=== PATIENT | male | born 1950 | race Caucasian/White ===

== ENCOUNTER 2017-01-10 10:01 | Emergency (ER) | payer MEDICARE, BC ==
[2017-01-10 10:11] VITALS: BP 159/96
--- NOTE | 2017-01-10 10:54 | ED Physician Documentation ---
PD HPI OPHTHO - Stated complaint Stated Complaint: L EYE VISION FLASH - Chief complaint Chief Complaint: Heent - History obtained from History obtained from: Patient - History of Present Illness Timing - onset: Enter time (1700), Yesterday Timing - duration: Days (1) Timing - details: Abrupt onset, Still present Location: Left Quality / character: No: Itching, Burning, Aching, Throbbing Associated symptoms: Other (subtle flash/blurr to lateral vision). No: Redness , Swelling, Tearing, Discharge, Matting, FB sensation, Photophobia, Double vision, Decreased vision, Loss of vision, Headache Contributing factors: Other (has had a prior retinal "aneurysm" that was injected last year). 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 He does not have foreign body sensation or significant pain. Review of Systems Constitutional: denies: Fever Eyes: denies: Loss of vision, Decreased vision, Photophobia, Discharge, Irritation Ears: denies: Ear pain Nose: denies: Congestion Respiratory: denies: Cough GI: denies: Vomiting PD PAST MEDICAL HISTORY - Past Medical History Past Medical History: Yes Other Past Medical History: 'fast HR at times'. 'anuerysm in left eye' - Past Surgical History Past Surgical History: No - Present Medications Home Medications: Ambulatory Orders Medication Instructions Recorded Confirmed Metoprolol Tartrate 12.5 mg PO DAILY 01/10/17 01/10/17 - Allergies Allergies/Adverse Reactions: Allergies Allergy/AdvReac Type Severity Reaction Status Date / Time No Known Drug Allergies Allergy Verified 01/10/17 10:11 - Social History Does the pt smoke?: No Smoking Status: Never smoker Does the pt drink ETOH?: No Does the pt have substance abuse?: No - Immunizations Immunizations are current?: Yes PD ED PE NORMAL - Vitals Vital signs reviewed: Yes (Hypertensive) - General General: Alert and oriented X 3, No acute distress, Well developed/nourished - HEENT HEENT: Atraumatic, PERRL, EOMI, Other (There is a cataract in the left eye and I am unable to adequately visualize the retina) - Neck Neck: Supple, no meningeal sign, No bony TTP - Respiratory Respiratory: No respiratory distress - Derm Derm: Normal color, No rash - Extremities Extremities: No deformity, No edema - Neuro Neuro: Alert and oriented X 3, No motor deficit, No sensory deficit, Normal speech - Psych Psych: Normal mood, Normal affect Results - Vitals Vitals: Vital Signs - 24 hr 01/10/17 10:07 Temperature 36.3 C L Heart Rate 73 Respiratory 16 Rate Blood Pressure 159/96 H O2 Saturation 99 Oxygen O2 Source Room air Procedures - Bedside sono Bedside sono by EMP: With the use of bedside ultrasound the retina on the left is examined and there is no obvious evidence of detachment. PD MEDICAL DECISION MAKING - ED course Complexity details: considered differential, d/w patient ED course: 66-year-old male with prior history of retinal aneurysm has symptoms today that are persisted and are vague and I am unable to visualize directly the retina. I am able to use bedside ultrasound and do not see obvious retinal detachment. I feel that the eye has been inadequately examined here and I have consulted Dr. Galaviz opthamology from here in [place] and he is in [place] today and he will see the patient for exam today. Departure - Departure Disposition: 01 Home, Self Care Clinical Impression: Vision disturbance Condition: Stable Instructions: ED Blurred Vision Follow-Up: MD Anastacia [Other] Comments: Follow up with Dr. Galaviz in [place] as planned today. Discharge Date/Time: 01/10/17 11:31
== END 2017-01-10 11:31 | disposition home or self-care (01) ==
LOC: ED 10:01
DX: H53.8 Other visual disturbances (principal); Z86.69 Personal history of other diseases of the nervous system and sense organs
CPT/HCPCS: 99283

== ENCOUNTER 2022-02-21 05:44 | Emergency (ER) | payer MEDICARE, BC ==
--- NOTE | 2022-02-21 06:09 | ED Physician Documentation ---
PD HPI MALE - Stated complaint Stated Complaint: MALE - Chief complaint Chief Complaint: General - History obtained from History obtained from: Patient - History of Present Illness Timing - onset: How many hours ago (2) Timing - duration: Hours (2) Timing - details: Gradual onset, Still present (he had placed a stainless steel 1/2 inch wide, 1/4 inch thick ring over glans and then shaft of his penis (intentional sex aid), which then got stuck when penis engorged and caused inability to urinate and discomfort in engorged penis.) Associated symptoms: Unable to urinate, Other (engorged penis) PD HPI MALE CONTRIB FACTORS: Sexually active. No: Exposed to STD Similar symptoms before: Has not had sx before Recently seen: Not recently seen Review of Systems Skin: denies: Rash, Abrasion (s), Laceration (s) Neurologic: denies: Focal weakness, Numbness PD PAST MEDICAL HISTORY - Past Medical History Past Medical History: Yes Cardiovascular: None Respiratory: None Neuro: None Endocrine/Autoimmune: None - Past Surgical History Past Surgical History: No - Present Medications Home Medications: Ambulatory Orders Medication Instructions Recorded Confirmed Metoprolol Succinate [Toprol Xl] 25 mg PO DAILY 02/21/22 02/21/22 - Allergies Allergies/Adverse Reactions: Allergies Allergy/AdvReac Type Severity Reaction Status Date / Time No Known Drug Allergies Allergy Verified 02/21/22 05:53 - Social History Does the pt smoke?: No Smoking Status: Never smoker Does the pt drink ETOH?: No Does the pt have substance abuse?: No - Immunizations Immunizations are current?: Yes PD ED PE NORMAL - Vitals Vital signs reviewed: Yes - General General: Alert and oriented X 3, No acute distress, Well developed/nourished - Abdomen Abdomen: Soft, Non tender - Rectal Rectal: Other (engorged penis with some purplish color. Stainless steel ring at base of shaft, with the metal thick about 1/4 inch and 1/2 inch wide. ) - Derm Derm: Warm and dry. No: Normal color (blaise color in penis distal to the ring, with engorged tissue.) - Extremities Extremities: No tenderness to palpate Results - Vitals Vitals: Vital Signs - 24 hr 02/21/22 02/21/22 02/21/22 05:51 10:35 13:42 Temperature 36.3 C L 35.7 C L Heart Rate 73 68 66 Respiratory 18 20 16 Rate Blood Pressure 149/84 H 143/91 H 130/83 H O2 Saturation 97 97 96 Oxygen O2 Source Room air - Labs Labs: Laboratory Tests 02/21/22 08:40 SARS-CoV-2 (PCR) NOT DETECTED PD MEDICAL DECISION MAKING - ED course Complexity details: considered differential (local anesth in dorsal shaft with butterfly needle evacuation of 20 ml blood, with deflation of the penis, but still not able to remove the ring. got to just base of glans and has swelling there that did not deflate. Tried just squeeing tissue to drain blood, then ice, but did not shrink enough. ), d/w patient, d/w field consultant (plan to call Urology for further consult at time of shift change. ) Departure - Departure Disposition: 01 Home, Self Care Clinical Impression: Penis injury Comments: Thank you for allowing us to care for you today at [facility]. Please keep your follow-up appointment with your urologist in the coming weeks. I recommend daily dressing changes, twice daily application of a topical antibiotic ointment such as bacitracin or Neosporin. If it anytime you develop any new or worsening symptoms such as increasing pain, discoloration of the penis, russ hematuria or if you find yourself in a place where you need to urinate but cannot its important you return to the emergency department for reevaluation. Discharge Date/Time: 02/21/22 13:42
[2022-02-21] MEDS ORDERED: LIDOCAINE 2%-EPI 1:100000 20 ML MDV SUBQ STA (08:07)
[2022-02-21] MEDS ORDERED: LIDOCAINE MPF 2%-EPI 1:200000 20 ML VIAL SUBQ STA (08:11)
[2022-02-21] MEDS ORDERED: PHENYLEPHRINE 10 MG/ML VIAL IC STA (09:24)
[2022-02-21] MEDS ORDERED: BACITRACIN ZINC OINT 1 PACKET TOP ONE (12:24)
--- NOTE | 2022-02-21 13:20 | ED Physician Documentation ---
ED Addendum - Addendum Addendum: 02/21/22 14:17Patient received a signout from off going physician, please see their documentation for further detail. In short patient presents to the emergency department with penile strangulation secondary to a penile ring he applied to yesterday evening. Prior to my evaluation patient was seen by the off going physician who FromReported attempted penile block, attempted use of ring cutter and evacuated blood the cavernosum bilaterally without successful removal of the ring. Upon my arrival I had ice packs placed.Patient continued to demonstrate significant detumescence but discoloration to the distal aspect of the shaft and penis. The ring could not be passed despite multiple attempts. I did consult directly with urology at the [facility] who recommended injections of phenylephrine into the corpus cavernosum bilaterally. Patient Received 250 mcg of phenylephrine bilaterally. [facility] Fire department was able to provide a pneumatically powered normal. Myself in conjunction with 2 firefighters and the nurse set up for continuous irrigation and the ring was cut in 2 locations and successfully removed. Examination demonstrated some persistent soft tissue swelling as well as abrasions around the shaft of the penis however these did improve with after removal of the ring. His wounds were cleaned in the emergency department. Topical antibiotic ointment was applied. He initially had a very minimal amount of russ red blood at the meatus of his penis however he was able to micturate spontaneously and there was no russ hematuria appreciated in urine and the bleeding at the meatus of his penis did not continue. He reports that he has a appointment with a urologist for an unrelated reason in his home state of [place] within a few weeks. I had a long and detailed discussion with him about the possibility of lasting injury, erectile dysfunction, and discussed important return precautions including return precaution for any pain, russ hematuria, or need to urinate with inability to do so. He verbalized understanding of these things. Was otherwise discharged with clear wound care instructions and follow-up instructions.
[2022-02-21 13:42] VITALS: BP 130/83
== END 2022-02-21 13:42 | disposition home or self-care (01) ==
LOC: ED 05:44
DX: S39.94XA Unspecified injury of external genitals, initial encounter (principal); X58.XXXA Exposure to other specified factors, initial encounter; Z20.822 Contact with and (suspected) exposure to COVID-19
CPT/HCPCS: 87635; 96372; 99283; A9270